=== PATIENT | female | born 1980 | race Caucasian/White ===

== ENCOUNTER 2021-05-28 07:35 | Day surgery (SDC) | payer OTHER, SELFPAY ==
[~2021-05-28] VITALS: Ht 147.3 cm; Wt 114.3 kg
[2021-05-28] MEDS ORDERED: fentaNYL citrate 0.05 MG/ML VIAL ONE (09:08)
[2021-05-28] MEDS ORDERED: diphenhydrAMINE 50 MG/ML VIAL ONE (09:08)
[2021-05-28] MEDS ORDERED: MIDAZOLAM 5 MG/5 ML VIAL ONE (09:09)
[2021-05-28] MEDS ORDERED: LIDOCAINE 2% 100 MG/5 ML UJET TP ONE ×2 (09:09→09:35)
[2021-05-28] MEDS ORDERED: fentaNYL citrate 0.05 MG/ML VIAL IVP ONE (09:35)
[2021-05-28] MEDS ORDERED: MIDAZOLAM 2 MG/2 ML VIAL IVP ONE (09:35)
== END 2021-05-28 10:41 | disposition home or self-care (01) ==
LOC: MDS 07:35 → MFCC 07:38 → MDS 10:41
PROVIDERS: ATTEND Internal Medicine Gastroenterology
DX: K52.9 Noninfective gastroenteritis and colitis, unspecified (principal); K64.8 Other hemorrhoids; K62.5 Hemorrhage of anus and rectum; J45.909 Unspecified asthma, uncomplicated; G47.30 Sleep apnea, unspecified; F17.210 Nicotine dependence, cigarettes, uncomplicated; Z91.040 Latex allergy status; Z79.899 Other long term (current) drug therapy; Z20.822 Contact with and (suspected) exposure to COVID-19
CPT/HCPCS: 45380; 81025; J2250; J3010; U0003; 88305; J1200